=== PATIENT | female | born 1995 | race Caucasian/White ===

== ENCOUNTER 2016-07-20 01:13 | Emergency (ER) | payer BC, MEDICAID, OTHER ==
[~2016-07-20] VITALS: Ht 162.6 cm; Wt 65.5 kg
[~2016-07-20 01:13] MED LIST: SERO25TA PO; SERO300T PO; ZOLO100T PO
[2016-07-20 01:14] VITALS: BP 126/73; PULSE 88; RESP 18; TEMP 98.2; O2SAT 97
[2016-07-20] MEDS ORDERED: diphenhydrAMINE HCL 50 MG/ML VIAL IM ONE (01:30)
--- NOTE | 2016-07-20 01:31 | PD ---
HPI Chief Complaint: Skin Problem Time Seen by Provider: 01:30 Travel History International Travel<30 days: No Contact w/Intl Traveler<30days: No Traveled to known affect area: No History of Present Illness HPI 21-year-old female who states she is 9 weeks presents emergency department for evaluation of a pruritic rash on her extremities and trunk. Patient states that it itches. She states it looks as though she is having an allergic reaction. Denies any new exposures. No recent illnesses, fever, chills. No new medications. No sensations of oral swelling or difficulty breathing. Does not recall anything new. She has no other symptoms to report. PFSH Past Medical History Medical History: Denies Significant Hx Diminished Hearing: No ?: LMP: 05/17/17 Past Surgical History Surgical History: No Previous Surgery Social History Alcohol Use: No Tobacco Use: Yes (/2 PPD) Substance Use: No Allergies-Medications (Allergen,Severity, Reaction): Coded Allergies: No Known Allergies (Unverified , 07/20/16) Reported Meds & Prescriptions Reported Meds & Active Scripts Active Seroquel (Quetiapine Fumarate) 25 Mg Tab 25 Mg PO QID Seroquel (Quetiapine Fumarate) 300 Mg Tab 300 Mg PO DAILY Zoloft (Sertraline HCl) 100 Mg Tab 100 Mg PO DAILY Reported Plus Iron 29-1 mg ( Vit-Iron Carbonyl) 1 Tab Tab 1 Tab PO DAILY Review of Systems Except as stated in HPI: all other systems reviewed are Neg Physical Exam Narrative GENERAL: Well-nourished, well-developed female patient, ambulatory no acute distress SKIN: Warm and dry. There are confluent, blanchable, we'll phone the extremities and trunk. There are no vesicle or pustule formation. HEAD: Normocephalic. EYES: No scleral icterus. No injection or drainage. ENT: Mucosa pink and moist. No erythema or exudates. No uvular edema. No uvular , palatal, or tonsillar deviation. Airway patent. Nasal turbinates appear normal without nasal blood, purulent drainage or septal hematoma. NECK: Supple, trachea midline. No JVD or lymphadenopathy. No stridor. CARDIOVASCULAR: Regular rate and rhythm without murmurs, gallops, or rubs. RESPIRATORY: Breath sounds equal bilaterally. No accessory muscle use. GASTROINTESTINAL: Abdomen soft, non-tender, nondistended. MUSCULOSKELETAL: No cyanosis, or edema. BACK: Nontender without obvious deformity. No CVA tenderness. Data Data Last Documented VS Vital Signs Date Time Temp Pulse Resp B/P Pulse Ox O2 Delivery O2 Flow Rate FiO2 07/20/16 01:14 98.2 88 18 126/73 97 Room Air Orders Diphenhydramine Inj (Benadryl Inj) (07/20/16 01:30) MDM Medical Decision Making Medical Screen Exam Complete: Yes Emergency Medical Condition: Yes Medical Record Reviewed: Yes Differential Diagnosis Urticaria versus PUPP versus contact dermatitis versus folliculitis versus insect bites versus electrolyte abnormality Narrative Course 21-year-old female presents to emergency department for evaluation of a pruritic rash. Physical exam is consistent with urticaria. Patient is given Benadryl. Upon reassessment, she is resting. She is no longer itching. She is discharged to follow-up with primary care provider. I encouraged her to continue with her Benadryl as directed on package as needed. She is in agreement with my care. She agrees to return immediately with any acute worsening of symptoms. Diagnosis Primary Impression: Urticaria Referrals: [facility] Primary Care Physician Patient Instructions: General Instructions, Pruritic Urticarial Papules and Plaques of (ED), Urticaria (ED) Additional Instructions: Avoid scratching the lesions Continue Benadryl as directed on package as needed for itch and rash Follow-up with an cob sawyer Return immediately to the emergency department with any acute worsening symptoms Med/Other Pt SpecificInfo: No Change to Meds Disposition: 01 DISCHARGE HOME Condition: Stable Mikayla Alvarez Jul 20, 2016 01:30
[2016-07-20] MEDS ORDERED: PREN29TA PO (01:32)
[2016-08-21] MEDS ORDERED: ZOLO50TA PO (11:11)
[2016-09-22] MEDS ORDERED: ZOLO100T PO (07:15)
[2016-11-09] MEDS ORDERED: SERO25TA PO (12:45)
== END 2016-07-20 03:11 | disposition home or self-care (01) ==
LOC: NEPA 01:13
DX: O26.891 Other specified pregnancy related conditions, first trimester (principal); L50.9 Urticaria, unspecified; F17.200 Nicotine dependence, unspecified, uncomplicated; Z3A.09 9 weeks gestation of pregnancy
CPT/HCPCS: 96372; 99282; J1200

== ENCOUNTER 2017-02-22 18:06 | Inpatient (IN) | payer OTHER ==
[~2017-02-22] VITALS: Ht 162.6 cm; Wt 68.0 kg
[2017-02-22] VITALS (24 sets, daily range): BP systolic 91–131; BP diastolic 55–87; PULSE 62–83; RESP 18; TEMP 97.5–98
[~2017-02-22 18:06] MED LIST changes: +DIPHTH/TETANUS/ACEL PERTUSSIS (BOOSTER) 0.5 ML VIAL/PFS IM ONE; +MEASLES, MUMPS, RUBELLA VACCINE 0.5 ML VIAL SQ ONE; +PREN29TA PO; +ZOLO50TA PO
[2017-02-22] MEDS ORDERED: LACTATED RINGER'S 1000 ML INJ 1,000 ML IV PRN (18:22)
[2017-02-22] MEDS ORDERED: LACTATED RINGER'S 1000 ML INJ 1,000 ML IV SCH (18:22)
[2017-02-22] MEDS ORDERED: MINERAL OIL 10 ML VIAL TOPICAL PRN (18:30)
[2017-02-22] MEDS ORDERED: LIDOCAINE HCL 1% 50 ML VIAL INFIL PRN (18:30)
[2017-02-22] MEDS ORDERED: SODIUM CHLORID 0.9% 500 ML INJ 500 ML IV PRN (18:30)
[2017-02-22] MEDS ORDERED: OXYTOCIN 30 UNITS-500ML PREMIX 500 ML IV ONE (18:30)
[2017-02-22] MEDS ORDERED: LIDOCAINE HCL 1% 50 ML VIAL I-DERMAL PRN (18:30)
[2017-02-22] MEDS ORDERED: CITRIC ACID-SODIUM CITRATE LIQ 30 ML UDC PO SCH (18:30)
--- NOTE | 2017-02-22 18:39 | PD ---
HPI Chief Complaint contractions Date Seen: Feb 22, 2017 Travel History International Travel<30 Days: No Contact w/Intl Traveler<30Days: No History of Present Illness HPI 21 yo @ 39 weeks. ROSI 03-01-2017. care with [facility] and was transferred to Dr. Wallace. History of drug and ETOH abuse and Bipolar Disorder. History of Hepatitis C with elevated LFTs. Patient presents with c/o uterine contractions since 3pm. She noted stronger UC in the past hour. No LOF, VB. +FM. GBS positive. History Past Medical History Narrative Medical Multisubstance Drug abuse ETOH abuse Bipolar disorder Depression Tattoo Hep C Obstetric History Obstetric History G1 Past Surgical History Surgical History: No Previous Surgery Family History Narrative Family History drug abuse Social History Alcohol Use: No (Hx of abuse) Tobacco Use: Yes (1/2 ppd) Substance Abuse: Yes (THC usage throughout ) Allergies-Medications (Allergen,Severity, Reaction): Coded Allergies: No Known Allergies (Unverified , 08/21/16) Home Meds Active Scripts Quetiapine (Seroquel) 25 Mg Tab, 25 MG PO QID, #180 TAB 3 Refills Prov:Dipesh Knight MD, R3 12/11/16 Quetiapine (Seroquel) 300 Mg Tab, 300 MG PO DAILY, #60 TAB 3 Refills Prov:Dipesh Knight MD, R3 12/11/16 Sertraline (Zoloft) 50 Mg Tab, 150 MG PO DAILY, #90 TAB 6 Refills Prov:Dipesh Knight MD, R3 08/21/16 Reported Medications Vit-Iron Carbonyl ( Plus Iron 29-1 mg) 1 Tab Tab, 1 TAB PO DAILY for Nutritional Supplement, #30 TAB 0 Refills 07/20/16 Discontinued Scripts Sertraline (Zoloft) 100 Mg Tab, 100 MG PO DAILY, #60 TAB 3 Refills Prov:Dipesh Knight MD, R3 09/22/16 Review of Systems General / Constitutional: No: Fever, Chills Eyes: No: Blurred Vision, Visual changes HENT: No: Headaches, Lightheadedness Cardiovascular: No: Chest Pain or Discomfort, Palpitations Respiratory: No: Cough, Short of Breath Gastrointestinal: Abdominal Pain (contractions), No: Nausea, Vomiting, Diarrhea Genitourinary: No: Urgency, Frequency, Dysuria, Discharge, Vaginal Bleeding Musculoskeletal: No: Limited ROM, Weakness, Edema Skin: No Rash, No Itching, No Lesions Neurologic: No: Syncope, Focal Abnormalities Psychiatric: Anxiety, Depression, Substance Abuse Physical Exam Exam Limitations: Poor Historian, Combative Narrative GENERAL: Well-nourished, well-developed patient. Uncomfortable with UC SKIN: Warm and dry. Track mead noted. HEAD: Normocephalic and atraumatic. EYES: No scleral icterus. No injection or drainage. ENT: No nasal drainage noted. Mucous membranes pink. Airway patent. NECK: trachea midline. No JVD. CARDIOVASCULAR: Regular rate VSS RESPIRATORY: . No accessory muscle use. ABDOMEN/GI: Abdomen soft, non-tender, no rebound, no guarding Gravid GENITOURINARY: External Genitalia: intact and normal in appearance SVE: 5-6/100/-1 intact TOCO: UC w 2-3 min, palpate strong FHT's: Category: Baseline: 155 Reactive: [-] Variability: mod Decels: [-] EXTREMITIES: No cyanosis or edema. BACK: Nontender without obvious deformity. No CVA tenderness. NEUROLOGICAL: Awake and alert. Motor and sensory grossly within normal limits. Normal speech. Data Data Vital Signs Reviewed: Yes Orders Orders Vital Signs (Adult) .ON ADMISSION (02/22/17 18:18) ^ Labor Status (02/22/17 18:18) ^ Non Stress Test (02/22/17 18:18) Ob (2e) Additional Admit Info (02/22/17 18:21) Admit To Inpatient (02/22/17 ) Code Status (02/22/17 18:22) Vital Signs (Adult) .Per protocol (02/22/17 18:22) Activity Oob Ad Manda (02/22/17 18:22) Heart (02/22/17 18:22) Amnioinfusion (02/22/17 18:) Urinary Catheter Management .ONCE (02/22/17 18:22) Diet Liquid (02/22/17 Dinner) Lactated Ringer's 1000 Ml Inj (Lr 1000 M (02/22/17 18:22) Lactated Ringer's 1000 Ml Inj (Lr 1000 M (02/22/17 18:22) Sodium Chlorid 0.9% 500 Ml Inj (Ns 500 M (02/22/17 18:30) Sodium Chlor 0.9% 1000 Ml Inj (Ns 1000 M (02/22/17 18:42) Lidocaine 1% Inj (50 Ml) (Xylocaine 1% I (02/22/17 18:30) Citric Acid-Sodium Citrate Liq (Bicitra (02/22/17 18:30) Fentanyl Inj (Fentanyl Inj) (02/22/17 18:30) Fentanyl Inj (Fentanyl Inj) (02/22/17 18:30) Penicillin G Potassium Inj (Pfizerpen-G (02/22/17 18:30) Penicillin G Potassium Inj (Pfizerpen-G (02/22/17 22:30) Complete Blood Count With Diff (02/22/17 18:22) Hold Clot (02/22/17 18:22) Abo/Rh Blood Type (02/22/17 18:22) Urinalysis - C+S If Indicated (02/22/17 18:22) Resp Oxygen Non Rebreathe Mask (02/22/17 ) ^ Epidural / Intrathecal Infus (02/22/17 18:22) Oxytocin 30 Units-500ml Premix (Pitocin (02/22/17 18:30) Lidocaine 1% Inj (50 Ml) (Xylocaine 1% I (02/22/17 18:30) Light Mineral Oil (Muri-Lube Oil) (02/22/17 18:30) Inpatient Certification (02/22/17 ) Ob/Psych Drug Screen, Urine (02/22/17 18:22) Group B Strep: Positive MDM Narrative Course / MDM 39 weeks Active labor, admit to L&D GBS positive, start Baldomero for prophylaxis History of drug abuse, UDS indicated Hx of ETOH abuse Smoker, patch if needed Hep C with mildly elevated LFTs this records obtained from [facility] Bipolar/Depression, continue medications Patient desires epidural All questions answered on admission Trinh De La Torre MD Feb 22, 2017 18:39
[2017-02-22] MEDS ORDERED: SODIUM CHLOR 0.9% 1000 ML INJ 1,000 ML IV PRN (18:42)
[2017-02-22] MEDS ORDERED: fentaNYL 2MCG-BUPIV 0.125% INJ 100 ML ONE (18:53)
[2017-02-22] MEDS ORDERED: ePHEDrine/NS 25 MG/5 ML SYR ONE (18:54)
[2017-02-22] MEDS ORDERED: PENICILLIN G POTASSIUM INJ 5,000,000 UNITS in SODIUM CHLORIDE 0.9% INJ 100 ML IV ONE (19:00)
[2017-02-22 19:17] LABS: BASOPHIL # 0.1 TH/MM3 (0-0.2); BASOPHIL % 0.4 % (0.0-2.0); EOSINOPHIL # 0.1 TH/MM3 (0-0.4); EOSINOPHIL % 0.5 % (0.0-4.0); HEMATOCRIT 37.1 % (35.0-46.0); HEMO FLAGS DIFF FINAL; LYMPH % 26.8 % (9.0-44.0); LYMPHOCYTE # 3.6 TH/MM3 (1.0-4.8); MEAN CORPUSCULAR HEMOGLOBIN 30.1 PG (27.0-34.0); MEAN CORPUSCULAR HGB CONC 33.8 % (32.0-36.0); MONO % 5.9 % (0.0-8.0); NEUT % 66.4 % (16.0-70.0); PLATELET COUNT 246 TH/MM3 (150-450); RED BLOOD COUNT 4.17 MIL/MM3 (4.00-5.30); RED CELL DISTRIBUTION WIDTH 13.3 % (11.6-17.2); WHITE BLOOD COUNT 13.5 TH/MM3 (4.0-11.0)
--- NOTE | 2017-02-22 19:32 | HHI.HP ---
History & Physical H&P HPI Chief Complaint contractions Date Seen: Feb 22, 2017 Travel History International Travel<30 Days: No Contact w/Intl Traveler<30Days: No History of Present Illness HPI 21 yo @ 39 weeks. ROSI 03-01-2017. care with [facility] and was transferred to Dr. Wallace. History of drug and ETOH abuse and Bipolar Disorder. History of Hepatitis C with elevated LFTs. Patient presents with c/o uterine contractions since 3pm. She noted stronger UC in the past hour. No LOF, VB. +FM. GBS positive. History (Limited) History Past Medical History Narrative Medical Multisubstance Drug abuse ETOH abuse Bipolar disorder Depression Tattoo Hep C Obstetric History Obstetric History G1 Past Surgical History Surgical History: No Previous Surgery Family History Narrative Family History drug abuse Social History Alcohol Use: No (Hx of abuse) Tobacco Use: Yes (/ ppd) Substance Abuse: Yes (THC usage throughout ) Allergies-Medications Allergies-Medications (Allergen,Severity, Reaction): Coded Allergies: No Known Allergies (Unverified , 08/21/16) Home Meds Active Scripts Quetiapine (Seroquel) 25 Mg Tab, 25 MG PO QID, #180 TAB 3 Refills Prov:Dipesh Knight MD, R3 12/11/16 Quetiapine (Seroquel) 300 Mg Tab, 300 MG PO DAILY, #60 TAB 3 Refills Prov:Dipesh Knight MD, R3 12/11/16 Sertraline (Zoloft) 50 Mg Tab, 150 MG PO DAILY, #90 TAB 6 Refills Prov:Dipesh Knight MD, R3 08/21/16 Reported Medications Vit-Iron Carbonyl ( Plus Iron 29-1 mg) 1 Tab Tab, 1 TAB PO DAILY for Nutritional Supplement, #30 TAB 0 Refills 07/20/16 Discontinued Scripts Sertraline (Zoloft) 100 Mg Tab, 100 MG PO DAILY, #60 TAB 3 Refills Prov:Dipesh Knight MD, R3 09/22/16 ROS Review of Systems General / Constitutional: No: Fever, Chills Eyes: No: Blurred Vision, Visual changes HENT: No: Headaches, Lightheadedness Cardiovascular: No: Chest Pain or Discomfort, Palpitations Respiratory: No: Cough, Short of Breath Gastrointestinal: Abdominal Pain (contractions), No: Nausea, Vomiting, Diarrhea Genitourinary: No: Urgency, Frequency, Dysuria, Discharge, Vaginal Bleeding Musculoskeletal: No: Limited ROM, Weakness, Edema Skin: No Rash, No Itching, No Lesions Neurologic: No: Syncope, Focal Abnormalities Psychiatric: Anxiety, Depression, Substance Abuse Physical Exam Physical Exam Exam Limitations: Poor Historian, Combative Narrative GENERAL: Well-nourished, well-developed patient. Uncomfortable with UC SKIN: Warm and dry. Track mead noted. HEAD: Normocephalic and atraumatic. EYES: No scleral icterus. No injection or drainage. ENT: No nasal drainage noted. Mucous membranes pink. Airway patent. NECK: trachea midline. No JVD. CARDIOVASCULAR: Regular rate VSS RESPIRATORY: . No accessory muscle use. ABDOMEN/GI: Abdomen soft, non-tender, no rebound, no guarding Gravid GENITOURINARY: External Genitalia: intact and normal in appearance SVE: 5-6/100/-1 intact TOCO: UC w 2-3 min, palpate strong FHT's: Category: Baseline: 155 Reactive: [-] Variability: mod Decels: [-] EXTREMITIES: No cyanosis or edema. BACK: Nontender without obvious deformity. No CVA tenderness. NEUROLOGICAL: Awake and alert. Motor and sensory grossly within normal limits. Normal speech. Data Data Data Vital Signs Reviewed: Yes Orders Orders Vital Signs (Adult) .ON ADMISSION (02/22/17 18:18) ^ Labor Status (02/22/17 18:18) ^ Non Stress Test (02/22/17 18:18) Ob (2e) Additional Admit Info (02/22/17 18:21) Admit To Inpatient (02/22/17 ) Code Status (02/22/17 18:22) Vital Signs (Adult) .Per protocol (02/22/17 18:22) Activity Oob Ad Manda (02/22/17 18:22) Heart (02/22/17 18:22) Amnioinfusion (02/22/17 18:22) Urinary Catheter Management .ONCE (02/22/17 18:22) Diet Liquid (02/22/17 Dinner) Lactated Ringer's 1000 Ml Inj (Lr 1000 M (02/22/17 18:22) Lactated Ringer's 1000 Ml Inj (Lr 1000 M (02/22/17 18:22) Sodium Chlorid 0.9% 500 Ml Inj (Ns 500 M (02/22/17 18:30) Sodium Chlor 0.9% 1000 Ml Inj (Ns 1000 M (02/22/17 18:42) Lidocaine 1% Inj (50 Ml) (Xylocaine 1% I (02/22/17 18:30) Citric Acid-Sodium Citrate Liq (Bicitra (02/22/17 18:30) Fentanyl Inj (Fentanyl Inj) (02/22/17 18:30) Fentanyl Inj (Fentanyl Inj) (02/22/17 18:30) Penicillin G Potassium Inj (Pfizerpen-G (02/22/17 18:30) Penicillin G Potassium Inj (Pfizerpen-G (02/22/17 22:30) Complete Blood Count With Diff (02/22/17 18:22) Hold Clot (02/22/17 18:22) Abo/Rh Blood Type (02/22/17 18:22) Urinalysis - C+S If Indicated (02/22/17 18:22) Resp Oxygen Non Rebreathe Mask (02/22/17 ) ^ Epidural / Intrathecal Infus (02/22/17 18:22) Oxytocin 30 Units-500ml Premix (Pitocin (02/22/17 18:30) Lidocaine 1% Inj (50 Ml) (Xylocaine 1% I (02/22/17 18:30) Light Mineral Oil (Muri-Lube Oil) (02/22/17 18:30) Inpatient Certification (02/22/17 ) Ob/Psych Drug Screen, Urine (02/22/17 18:22) Group B Strep: Positive MDM MDM Narrative Course / MDM 39 weeks Active labor, admit to L&D GBS positive, start Baldomero for prophylaxis History of drug abuse, UDS indicated Hx of ETOH abuse Smoker, patch if needed Hep C with mildly elevated LFTs this records obtained from [facility] Bipolar/Depression, continue medications Patient desires epidural All questions answered on admission Trinh De La Torre MD Feb 22, 2017 19:32
[2017-02-22] MEDS ORDERED: fentaNYL 2MCG-BUPIV 0.125% 100 ML EPIDURAL SCH (20:15)
[2017-02-22] MEDS ORDERED: DO NOT ADMINISTER ANTICOAGULANTS PRN (20:15)
[2017-02-22] MEDS ORDERED: ePHEDrine/NS 25 MG/5 ML SYR IV PUSH PRN (20:15)
[2017-02-22] MEDS ORDERED: NO SYSTEM NARCOTICS PRN (20:15)
[2017-02-22 21:05] LABS: BLOOD, URINE NEG (NEG); COMMENT (UR) CATH-CULT NOT IND; CULTURE IF INDICATED CATH CULTURE NOT IND; GLUCOSE,URINE NEG (NEG); KETONE, URINE 10 mg/dL (NEG); NITRITE,URINE NEG (NEG); SQUAMOUS EPITHELIAL CELL URINE 1 /hpf (0-5); URINE COLOR YELLOW (YELLW/STRAW)
[2017-02-22] MEDS ORDERED: PENICILLIN G POTASSIUM INJ 2,500,000 UNITS in SODIUM CHLORIDE 0.9% INJ 100 ML IV SCH (23:00)
[2017-02-22 23:38] LABS: ALCOHOL LESS THAN 3 MG/DL (0-5)
--- NOTE | 2017-02-22 23:38 | PD.OB.DELI ---
Weeks gestation: 39 Gest age assessed date: Feb 22, 2017 Gest age assessed time: 23:45 Pt started active labor?: Yes Medical induction of labor?: No Artificial rupture of membrane: Yes (meconium fluid) Artificial ROM date: Feb 22, 2017 Artifical ROM time: 23:05 Anesthesia: Epidural Episiotomy: None Vaginal Delivery: Normal Presentation: Occiput posterior Nuchal Cord: None Delayed cord clamping (45 sec): No (cord milked) : Female Delivery date: Feb 22, 2017 Delivery time: 23:25 One Minute : 8 Five Minute : 9 Weight: [id number] Placenta: Spontaneous delivery, Intact Laceration: No lacerations Estimated blood loss: 100ml Additional Information 21 yo @ 39 weeks. Presented in active labor. GBS Positive. Hx of substance abuse. Hepatitis C with history of elevated LFTs. Pen G for prophylaxis x 2 doses. Epidural for anesthesia. AROM with meconium stained fluid. Uncomplicated in OP. No lacerations. Placenta spontaneous and intact. Meconium stained otherwise grossly normal. EBL <100ml. Trinh De La Torre MD Feb 22, 2017 23:38
[2017-02-22 23:42] LABS: BLOOD GAS BASE EXCESS -1.7 mmol/L (-2-2); BLOOD GAS O2 HGB SATURATION 25 % (90-100); CORD BLOOD GAS HCO3 24 mmol/L (21-29); CORD BLOOD GAS PCO2 47 mmHG (34-78); CORD BLOOD GAS PH 7.32 (7.14-7.42); CORD BLOOD GAS PO2 15 mmHG (3.0-40.0); DRAW SITE CORD BLOOD; STAT YES
[2017-02-22] MEDS ORDERED: ONDANSETRON ODT 4 MG TAB PO PRN (23:45)
[2017-02-22] MEDS ORDERED: DOCUSATE SODIUM 50 MG/SENNA 8.6 MG TAB PO PRN (23:45)
[2017-02-22] MEDS ORDERED: BENZOCAINE 20% TOPICAL SPRAY 60 ML CAN TOPICAL PRN (23:45)
[2017-02-22] MEDS ORDERED: OXYTOCIN 30 UNITS-500ML PREMIX 500 ML IV SCH (23:45)
[2017-02-22] MEDS ORDERED: SODIUM CHLORIDE 0.9% FLUSH 10 ML FLUSH IV FLUSH PRN (23:45)
[2017-02-22] MEDS ORDERED: WITCH HAZEL 50%/GLYCERIN 12.5% 40 PAD JAR TOPICAL PRN (23:45)
[2017-02-22] MEDS ORDERED: ALUMINUM/MAGNESIUM/SIMETH 30 ML CUP PO PRN (23:45)
[2017-02-22 23:58] LABS: ALT (GPT) 57 U/L (10-53); AST (GOT) 36 U/L (15-37)
[2017-02-23] VITALS (9 sets, daily range): BP systolic 108–131; BP diastolic 72–82; PULSE 54–71; RESP 16–18; TEMP 98.4
[2017-02-23 00:01] LABS: ALKALINE PHOSPHATASE 207 U/L (45-117); INDIRECT BILIRUBIN 0.3 MG/DL (0.0-0.8); TOTAL BILIRUBIN ADULT 0.4 MG/DL (0.2-1.0)
[2017-02-23] MEDS: IBUPROFEN 600 MG TAB PO PRN ×2 (03:43→10:52)
[2017-02-23] MEDS: ACETAMINOPHEN 325 MG TAB PO PRN ×2 (03:43→10:52)
[2017-02-23] MEDS ORDERED: QUEtiapine FUMARATE 25 MG TAB PO SCH (09:00)
[2017-02-23] MEDS ORDERED: SODIUM CHLORIDE 0.9% FLUSH 10 ML FLUSH IV FLUSH SCH (09:00)
--- NOTE | 2017-02-23 09:46 | HHI.OB ---
Subjective Post Day: 1 Remarks day #1. AFVSS overnight. Pain minimal. Decreased lochia. Denies dysuria. No breast tenderness. She is feeding the baby via formula. Appetite good. No nausea or vomiting. Passing flatus. [-] bowel movement. Ambulating well. Denies calf pain, shortness of breath, or cough. Otherwise, she is doing well this morning and has no other complaints. (Josey Duran MD R1) Objective Vitals/I&O Vital Signs Date Time Temp Pulse Resp B/P (MAP) Pulse Ox O2 Delivery O2 Flow Rate FiO2 02/23/17 03:45 59 02/23/17 03:45 98.4 54 18 02/23/17 03:45 131/80 (97) 02/23/17 01:25 16 02/23/17 00:55 16 02/23/17 00:40 16 02/23/17 00:30 71 108/74 (85) 02/23/17 00:25 16 02/23/17 00:15 56 116/72 (87) 02/23/17 00:06 18 02/23/17 00:00 62 120/82 (95) 02/22/17 23:45 18 02/22/17 23:45 64 113/74 (87) 02/22/17 23:30 65 116/73 (87) 02/22/17 23:00 62 95/63 (74) 02/22/17 22:45 63 97/60 (72) 02/22/17 22:30 18 02/22/17 22:15 62 109/61 (77) 02/22/17 22:00 62 115/82 (93) 02/22/17 21:45 98.0 67 104/68 (80) 02/22/17 21:30 67 103/76 (85) 02/22/17 21:29 18 02/22/17 21:18 83 101/74 (83) 02/22/17 21:00 64 91/55 (67) 02/22/17 20:45 78 94/69 (77) 02/22/17 20:30 18 02/22/17 20:30 65 115/72 (86) 02/22/17 20:15 65 115/68 (84) 02/22/17 20:00 70 110/86 (94) 02/22/17 19:46 75 118/69 (85) 02/22/17 19:35 78 122/86 (98) 02/22/17 19:35 76 02/22/17 19:30 76 119/87 (98) 02/22/17 19:30 77 02/22/17 19:25 76 02/22/17 19:24 77 123/83 (96) 02/22/17 19:14 18 02/22/17 18:45 97.5 02/22/17 18:45 18 02/22/17 18:25 71 131/85 (100) Objective Remarks GENERAL: Well-nourished, well-developed patient. CARDIOVASCULAR: Regular rate and rhythm without murmurs, gallops, or rubs. RESPIRATORY: Breath sounds equal bilaterally. No accessory muscle use. ABDOMEN/GI: Abdomen soft, non-tender. Fundus: Firm, non-tender at umbilicus. GENITOURINARY: Light to moderate bleeding. EXTREMITIES: No cyanosis or edema, non-tender, without signs of DVT. Medications and IVs Current Medications Medications (Trade) Dose Ordered Sig/Griffin Route Start Time Stop Time Status Last Admin (NS Flush) 2 ml BID IV FLUSH 02/23/17 09:00 (NS Flush) 2 ml UNSCH PRN IV FLUSH 02/22/17 23:45 (Tylenol) 650 mg Q4H PRN PO 02/22/17 23:45 02/23/17 03:43 (Motrin) 600 mg Q6H PRN PO 02/22/17 23:45 02/23/17 03:43 (Americaine 20% Top Spr) 1 spray Q4H PRN TOPICAL 02/22/17 23:45 (Tucks Pads) 1 applic QID PRN TOPICAL 02/22/17 23:45 (Fatou-Colace) 2 tab Q12H PRN PO 02/22/17 23:45 (Mag-Al Plus Susp Liq) 15 ml Q8H PRN PO 02/22/17 23:45 (Zofran Odt) 4 mg Q6H PRN PO 02/22/17 23:45 (Zoloft) 50 mg DAILYAC PO 02/24/17 08:00 (Zoloft) 100 mg HS PO 02/23/17 21:00 (SEROquel) 300 mg HS PO 02/23/17 21:00 (SEROquel) 25 mg BID@09,12 PO 02/23/17 09:00 (Josey Duran MD R1) Assessment/Plan Assessment and Plan 21 y/o who is PPD#1 s/p . -Continue routine care. -Percocet and Motrin PRN pain. -Encouraged OOB. Advised pelvic rest for 6 wks. -Will need a f/u appt. within 6 wks. -D/c in 1 more days. wdw OB attending Dr. De La Torre (Josey Duran MD R1) Attending Attestation PPD #2 s/p doing well +UDS continue pp care and observaiton d/c in am patient seen and examined. d/w Dr. Jurado and Dr. Duran (Trinh De La Torre MD) Josey Duran MD R1 Feb 23, 2017 09:46 Trinh De La Torre MD Feb 25, 2017 08:19
[2017-02-23] MEDS ORDERED: SENN1TAB PO (14:41)
[2017-02-23] MEDS ORDERED: IBUP-232 PO (14:41)
--- NOTE | 2017-02-23 14:42 | HHI.DCPOC ---
Discharge Care Plan Diagnosis: (1) Report Symptoms to Your Doctor -Temperature above 100.5 degrees -Redness, of incision or excessive or foul smelling drainage -Unusual pain or calf pain -Increased vaginal bleeding -Painful or difficulty urinating -Feelings of extreme sadness or anxiety after 2 weeks Goals to Promote Your Health * To prevent worsening of your condition and complications * To maintain your health at the optimal level Directions to Meet Your Goals Take your medications as prescribed Follow your dietary instruction Follow activity as directed Ensure plenty of rest for recovery Drink fluids for hydration Keep your appointments as scheduled Take your immunizations and boosters as scheduled If your symptoms worsen call your PCP, if no PCP go to Urgent Care Center or Emergency Room Smoking is Dangerous to Your Health. Avoid second hand smoke Call the 24-hour crisis hotline for domestic abuse at Josey Duran MD R1 Feb 23, 2017 14:42
[2017-02-23] MEDS ORDERED: SERTRALINE HCL 100 MG TAB PO SCH (21:00)
[2017-02-23] MEDS ORDERED: QUEtiapine FUMARATE 300 MG TAB PO SCH (21:00)
[2017-02-24] MEDS ORDERED: SERTRALINE HCL 50 MG TAB PO SCH (08:00)
[2017-02-26 07:38] LABS: ECSTASY (MDMA) UR NEG (NEG); HEROIN (6-ACETYLMORPHINE) UR NEG (NEG); K2 SPICE UR NEG (NEG); OBMETHADONE UR NEG (NEG); PHENCYCLIDINE URINE NEG (NEG)
[2017-02-26 07:39] LABS: BATH SALTS (MDPV) UR NEG (NEG); GABAPENTIN UR NEG (NEG); HYDROMORPHONE U NEG (NEG)
== END 2017-02-23 16:11 | disposition home or self-care (01) | DRG 774 ==
LOC: HOBED 18:06 → H2EA 18:24 → H1EA 02-23 02:45
PROVIDERS: ADMIT Obstetrics & Gynecology; ATTEND Obstetrics & Gynecology
PROC: 10E0XZZ Delivery of Products of Conception, External Approach (ICD-10-PCS; principal; 2017-02-22)
PROC: 10907ZC Drainage of Amniotic Fluid, Therapeutic from Products of Conception, Via Natural or Artificial Opening (ICD-10-PCS; 2017-02-22)
PROC: 3E0R3BZ Introduction of Anesthetic Agent into Spinal Canal, Percutaneous Approach (ICD-10-PCS; 2017-02-22)
PROC: 00HU33Z Insertion of Infusion Device into Spinal Canal, Percutaneous Approach (ICD-10-PCS; 2017-02-22)
DX: O77.0 Labor and delivery complicated by meconium in amniotic fluid (principal); O98.42 Viral hepatitis complicating childbirth; O99.324 Drug use complicating childbirth; Z37.0 Single live birth; B19.20 Unspecified viral hepatitis C without hepatic coma; O99.824 Streptococcus B carrier state complicating childbirth; F12.90 Cannabis use, unspecified, uncomplicated; O99.344 Other mental disorders complicating childbirth; F31.9 Bipolar disorder, unspecified; F10.10 Alcohol abuse, uncomplicated; Z3A.39 39 weeks gestation of pregnancy; O99.334 Smoking (tobacco) complicating childbirth
CPT/HCPCS: 59025; 80076; 80307; 81001; 82805; 85025; 86900; 86901; 87641; 88307; G0481; J2540; J2590; J7120